=== PATIENT | male | born 1950 | race Caucasian/White ===

== ENCOUNTER 2021-01-09 08:26 | Outpatient (CLI) | payer MEDICARE, SELFPAY | END 2021-01-09 08:27 | disposition home or self-care (01) | LOC: CHSLAB 08:30 | PROVIDERS: Visit Provider Specialist | DX: C44.629 Squamous cell carcinoma of skin of left upper limb, including shoulder (principal) | CPT/HCPCS: 88305 ==

== ENCOUNTER 2021-07-03 08:27 | Outpatient (CLI) | payer MEDICARE, SELFPAY | END 2021-07-03 08:28 | disposition home or self-care (01) | LOC: CHSOUTPT 08:30 | PROVIDERS: PCP Family Medicine; Visit Provider Specialist | DX: C44.722 Squamous cell carcinoma of skin of right lower limb, including hip (principal) | CPT/HCPCS: 88305 ==

== ENCOUNTER 2022-12-24 10:39 | Outpatient (CLI) | payer MEDICARE, SELFPAY | END 2022-12-24 10:40 | disposition home or self-care (01) | LOC: CHSLAB 10:42 | PROVIDERS: PCP Family Medicine; Visit Provider Specialist | DX: C44.529 Squamous cell carcinoma of skin of other part of trunk (principal); L57.8 Other skin changes due to chronic exposure to nonionizing radiation; L73.9 Follicular disorder, unspecified; L57.0 Actinic keratosis | CPT/HCPCS: 88305 ==

== ENCOUNTER 2023-07-08 10:31 | Outpatient (CLI) | payer MEDICARE, SELFPAY | END 2023-07-08 10:32 | disposition home or self-care (01) | PROVIDERS: PCP Family Medicine; Visit Provider Specialist | DX: C44.529 Squamous cell carcinoma of skin of other part of trunk (principal) | CPT/HCPCS: 88305 ==

== ENCOUNTER 2024-07-01 16:10 | Outpatient (CLI) | payer MEDICARE, SELFPAY | END 2024-07-01 16:11 | disposition home or self-care (01) | LOC: CHSLAB 16:19 | PROVIDERS: PCP Specialist; Visit Provider Specialist | DX: C44.629 Squamous cell carcinoma of skin of left upper limb, including shoulder (principal) | CPT/HCPCS: 88305 ==

== ENCOUNTER 2024-08-17 10:44 | Outpatient (CLI) | payer MEDICARE, SELFPAY ==
--- OUTSIDE RECORDS SUMMARY | 2024-08-17 12:04 | XMS_ITS | Clinical Summary ---
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 File) Date Activated Date Inactivated Comments 06/16/2019 8:33 AM 07/21/2024 7:18 AM * DNR Date Activated Date Inactivated Comments 06/15/2019 1:06 AM 06/17/2019 12:37 PM * Full Code Date Activated Date Inactivated Comments 06/14/2019 10:05 PM 06/15/2019 1:06 AM * Full Code Date Activated Date Inactivated Comments 06/10/2018 8:49 AM 06/10/2018 7:40 PM * Full Code Date Activated Date Inactivated Comments 06/09/2018 2:49 PM 06/10/2018 8:49 AM Care Teams Lean Engineer Relationship Specialty Start Date End Date Sharee Burnett MD [address] [place] [address] PCP - General FAMILY PRACTICE 02/09/[address] [facility]. [facility] [address] [place] [address] Eugenio Resolution Specialist CARDIOVASCULAR DISEASE 05/21/17 aPmela Jean Baptiste, medical historian (Ambulatory) REGISTERED NURSE 06/17/19
--- OUTSIDE RECORDS SUMMARY | 2024-08-17 12:04 | XMS_ITS | Encounter Summary ---
Author Organization [facility] Address [address] [place] [address] Care Team Providers Care Managed Services Sales Consultant Name Role Phone Cholo Ugarte MD Primary Care Provider Un available Sanam Wang MD Unavailable [phone] Pamela Jean Baptiste RN Unavailable Unavailable Yenni MgC Primary Care Provider [phone] Sharee Burnett MD Primary Care Provider [phone] Encounter Details Date Type Department Care Team (Late st Contact Info) Description 06/18/2019 Hospital Follow-up Call [facility] Telemetry Unit [address] [facility] [place] [address] Yeimy Husain Social History Tobacco Use Types Packs/Day Years Used Date Smoking Tobacco: Former Cigarettes Q uit: 1976 Smokeless Tobacco: Never Alcohol Use Standard Drinks/Week Comments Yes 5 (1 standard drink = 0.6 oz pur e alcohol) everyday, 2-3 beers a day AUDIT-C Answer Date Recorded Frequency of Alcohol Consumption 4 or more times a week 06/14/2019 Average Number of Drinks 3 or 4 020 Frequency of Binge Drinking Not on file 05/23 PHQ-2 Answer Date Recorded PHQ-2 Score 0 07/19/2018 Education Answer Date Recorded What is the highest level of school you have completed or the highest degree you have received? 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 Answer Date of Assessment Author Status No 06/15/2019 8:00 AM BOUNTY TRAPPER Activ e * Do you have serious difficulty walking or climbing stairs? Answer Date of Assessment Author Status No 06/15/2019 8:00 AM Rose Mary Willis RN Active * Do you have difficulty dressing or bathing? Answer Date of Assessment Author Status No 06/15/2019 8:00 AM Rose Mary Willis RN Active * Because of a physical, mental, or emotional condition, do you have difficulty doing errands alone such as visiting a doctor's office or shopping? Answer Date of Assessment Author Status No 06/15/2019 8:00 AM Rose Mary Willis RN Active documented as of this encounter Mental Status * Because of a physical, mental, or emotional condition, do you have serious difficulty concentrating, remembering, or making decisions? Answer Entry Date Author Status No 06/15/2019 8:00 AM Rose Mary Willis RN Active documented in this encounter Plan of Treatment Upcoming Encounters Date Type Department Care Team (Late st Contact Info) Description 11/01/2024 8:00 AM CDT Office Visit [facility] Family Medicine [facility] [address] [place] [phone] Sharee Burnett MD [address] [place] [address] 01/19/2025 9:30 AM CDT Office Visit [facility] [place] [address] [place] [address] Sanam Wang MD Three [facility]. [place] [address] [place] [address] documented as of this encounter Visit Diagnoses Not on filedocumented in this encounter Additional Health Concerns Assessment Noted Time PHQ-9 Depression Total Score: 1 04/05/20 18 7:50 PM BOUNTY TRAPPER documented as of this encounter Care Teams Managed Services Sales Consultant Relationship Specialty Start Date End Date Cholo Ugarte MD PCP - General FAMILY PRACTICE 04/03/17 02/05/24 Yenni Mg PA-C [address] [place] [address] [place] [address] PCP - General PHYSICIAN FISHER CLAM 02/06/24 02/08/24 Sharee Burnett MD [address] [place] [address] PCP - General FAMILY PRACTICE 02/09/24 Sanam Wang MD Three [facility]. [place] [address] [place] [address] [place] Custody Assistant CARDIOVASCULAR DISEASE 05/21/17 Pamela Jean Baptiste RN Care Manager (Ambulatory) REGISTERED NURSE 06/17/19 documented as of this encounter
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
--- OUTSIDE RECORDS SUMMARY | 2024-08-17 12:04 | XMS_ITS | Encounter Summary ---
Author Organization [facility] Address [address] [place] [address] Care Team Providers Care High School Science Teacher Name Role Phone Sanam Wang MD Unavailable [phone] Pamela Jean Baptiste RN Unavailable Unavailable Sharee Burnett MD Primary Care Provider [phone] Encounter Details Date Type Department Care Team (Latest Contact Info) Description 08/16/2024 Travel Social History Tobacco Use Types Packs/Day Years Used Date Smoking Tobacco: Former Cigarettes Q uit: 1976 Smokeless Tobacco: Never Comments:Pt unsure how many he smoked or [...] Sex Assigned at Male 05/05/2024 8:04 AM COST ACCOUNTANT Legal Sex Male 10:33 PM CDT Gender Identity Not on file Sexual Orientation Not on file Occupation Industry Job Start Date Job End Date 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 Answer Date of Assessment Author Status No 06/15/2019 8:00 AM COST ACCOUNTANT Activ e * Do you have serious [...] hopeless Not at all 08/16/2024 8:18 AM RAST Sharee Escalona MA Active Patient Health Questionnaire-2 Score 0 08/16/2024 8:18 AM RAST Sharee Escalona MA Active * If you checked off [...] Description 11/01/2024 8:00 AM CDT Office Visit [facility] Family Medicine [address] [address] Sharee Burnett MD [address] [place] [address] 01/19/2025 9:30 AM CDT [facility], [place] [address] [place], [place] [id number] Sanam Wang MD Three [facility]. [place] [address] [place] [address] documented as of this encounter Visit Diagnoses Not on filedocumented in this encounter Additional Health Concerns Assessment Noted Time PHQ-9 Depression Total Score: 0 04/19/20 24 10:14 AM COST ACCOUNTANT documented as of this encounter Care Teams High School Science Teacher Relationship Specialty Start Date End Date Sharee Burnett MD [address] [place] [address] PCP - General FAMILY PRACTICE 02/09/24 Sanam Wang MD [facility]. [place] [address] [place] [address] Rueter Leather Fitter CARDIOVASCULAR DISEASE 05/21/17 Pamela Jean Baptiste, tour driver (Ambulatory) REGISTERED NURSE 06/17/19 documented as of this encounter
== END 2024-08-17 10:45 | disposition home or self-care (01) ==
LOC: CHSLAB 10:46
PROVIDERS: PCP Specialist; Visit Provider Specialist
DX: C44.629 Squamous cell carcinoma of skin of left upper limb, including shoulder (principal)
CPT/HCPCS: 88305